=== PATIENT | male | born 1955 | race Caucasian/White ===

== ENCOUNTER 2017-05-05 12:42 | Emergency (ER) | payer BC ==
[2017-05-05] MEDS: NICARDipine HCL 30 MG CAPSULE PO (18:18)
[2017-05-05] MEDS: FLUORESCEIN STRIP LEFT EYE (18:18)
[2017-05-05] MEDS: PROPARACAINE 0.5% 15 ML OPH LEFT EYE (18:30)
[2017-05-05] MEDS: TETRACAINE 0.5% 4 ML OPH LEFT EYE (19:24)
== END 2017-05-05 19:42 | disposition home or self-care (01) ==
LOC: E/R 12:42
DX: I10 Essential (primary) hypertension (principal); S05.02XA Injury of conjunctiva and corneal abrasion without foreign body, left eye, initial encounter; X58.XXXA Exposure to other specified factors, initial encounter; Y92.9 Unspecified place or not applicable
CPT/HCPCS: 99284

== ENCOUNTER 2017-06-08 17:15 | Emergency (ER) | payer BC ==
[2017-06-09 00:07] LABS: ADD MAN DIFF? NO
[2017-06-09 00:08] LABS: BASOPHIL # 0.1 10^3/ul (0.0-0.1); BASOPHILS % 0.9 % (0.0-2.0); EOSINOPHILS # 0.2 10^3/ul (0.0-0.5); EOSINOPHILS % 1.1 % (0.0-7.0); HEMATOCRIT 40.4 % (42.0-52.0); HEMOGLOBIN 14.2 g/dl (14.0-18.0); LYMPHOCYTES # 4.3 10^3/ul (0.8-2.9); LYMPHOCYTES % 30.8 % (15.0-51.0); MEAN CORPUSCULAR HEMOGLOBIN 31.2 pg (29.0-33.0); MEAN CORPUSCULAR HGB CONC 35.1 g/dl (32.0-37.0); MEAN CORPUSCULAR VOLUME 88.8 fl (82.0-101.0); MEAN PLATELET VOLUME 10.5 fl (7.4-10.4); MONOCYTE # 0.9 10^3/ul (0.3-0.9); MONOCYTES % 6.6 % (0.0-11.0); NEUTROPHIL # 8.4 10^3/ul (1.6-7.5); NEUTROPHILS % 60.3 % (39.0-77.0); PLATELET COUNT 252 10^3/UL (140-415); RED BLOOD COUNT 4.55 10^6/ul (4.70-6.10); RED CELL DISTRIBUTION WIDTH 12.9 % (11.5-14.5)
[2017-06-09 00:27] LABS: ALANINE AMINOTRANSFERASE 39 IU/L (13-69); ALBUMIN 4.7 g/dl (3.3-4.9); ALBUMIN/GLOBULIN RATIO 1.04; ALKALINE PHOSPHATASE 110 IU/L (42-121); ANION GAP 18 (8-16); ASPARTATE AMINO TRANSFERASE 51 IU/L (15-46); BILIRUBIN,INDIRECT 1.8 mg/dl (0-1.1); BILIRUBIN,TOTAL 1.8 mg/dl (0.2-1.3); BLOOD UREA NITROGEN 15 mg/dl (7-20); CALCIUM 9.7 mg/dl (8.4-10.2); CARBON DIOXIDE 26 mmol/L (21-31); CHLORIDE 102 mmol/L (97-110); CREATININE 0.78 mg/dl (0.61-1.24); GLUCOSE 98 mg/dl (70-220); POTASSIUM 3.8 mmol/L (3.5-5.1); SODIUM 142 mmol/L (135-144); TOTAL PROTEIN 9.2 g/dl (6.1-8.1)
[2017-06-09 00:39] LABS: B-TYPE NATRIURETIC PEPTIDE 257 PG/ML (0-125)
[2017-06-09 00:42] LABS: TROPONIN-I < 0.012 ng/ml (0.00-0.12)
== END 2017-06-09 02:38 | disposition home or self-care (01) ==
LOC: E/R 17:15
DX: I10 Essential (primary) hypertension (principal)
CPT/HCPCS: 36415; 71045; 80053; 83880; 84484; 85025; 93005; 99285-25

== ENCOUNTER 2018-08-08 20:17 | Inpatient (IN) | payer BC ==
[2018-08-08 21:30] LABS: ADD MAN DIFF? NO
[2018-08-08 21:34] LABS: ABNORMAL IP MESSAGE 1; BASOPHIL # 0.1 10^3/ul (0.0-0.1); BASOPHILS % 0.5 % (0.0-2.0); EOSINOPHILS # 0.1 10^3/ul (0.0-0.5); EOSINOPHILS % 1.1 % (0.0-7.0); HEMATOCRIT 15.4 % (42.0-52.0); LYMPHOCYTES # 2.4 10^3/ul (0.8-2.9); LYMPHOCYTES % 20.1 % (15.0-51.0); MEAN CORPUSCULAR HEMOGLOBIN 29.3 pg (29.0-33.0); MEAN CORPUSCULAR HGB CONC 35.1 g/dl (32.0-37.0); MEAN CORPUSCULAR VOLUME 83.7 fl (82.0-101.0); MEAN PLATELET VOLUME 11.4 fl (7.4-10.4); MONOCYTE # 1.4 10^3/ul (0.3-0.9); MONOCYTES % 11.9 % (0.0-11.0); NEUTROPHILS % 65.7 % (39.0-77.0); PLATELET COUNT 111 10^3/UL (140-415); POSITIVE DIFF @See below; RED BLOOD COUNT 1.84 10^6/ul (4.70-6.10); RED CELL DISTRIBUTION WIDTH 19.5 % (11.5-14.5)
[2018-08-08 21:34] LABS: WHITE BLOOD COUNT 12.1 10^3/ul (4.8-10.8)
[2018-08-08 21:37] LABS: HEMOGLOBIN 5.4 g/dl (14.0-18.0)
[2018-08-08 21:39] LABS: URINE BLOOD (Dip) POC Negative (NEGATIVE); URINE GLUCOSE (Dip) POC Negative (NEGATIVE); URINE KETONES (Dip) POC Trace (NEGATIVE); URINE LEUKOCYTE EST (Dip) POC Negative (NEGATIVE); URINE NITRITE (Dip) POC Negative (NEGATIVE); URINE TOTAL PROTEIN POC 1+ (NEGATIVE)
[2018-08-08 21:39] LABS: URINE PH (Dip) POC 5.5 (5.0-8.5)
[2018-08-08 21:51] LABS: INR 2.46; PROTIME 26.7 Sec (11.9-14.9); PT RATIO 2.1
[2018-08-08 21:52] LABS: PARTIAL THROMBOPLASTIN TIME 49.9 Sec (23.0-35.0)
[2018-08-08 21:55] LABS: AMMONIA 38 umol/l (9-30)
[2018-08-08 21:57] LABS: ALANINE AMINOTRANSFERASE 31 IU/L (13-69); ALBUMIN 2.4 g/dl (3.3-4.9); ALBUMIN/GLOBULIN RATIO 0.63; ALKALINE PHOSPHATASE 125 IU/L (42-121); ANION GAP 12 (5-13); ASPARTATE AMINO TRANSFERASE 75 IU/L (15-46); BILIRUBIN,INDIRECT 1.7 mg/dl (0-1.1); BILIRUBIN,TOTAL 2.8 mg/dl (0.2-1.3); BLOOD UREA NITROGEN 46 mg/dl (7-20); CALCIUM 8.3 mg/dl (8.4-10.2); CARBON DIOXIDE 14 mmol/L (21-31); CHLORIDE 114 mmol/L (97-110); Estimated GFR 13 mL/min (>60); GLUCOSE 112 mg/dl (70-220); LIPASE 69 U/L (23-300); POTASSIUM 4.5 mmol/L (3.5-5.1); SODIUM 140 mmol/L (135-144); TOTAL PROTEIN 6.2 g/dl (6.1-8.1)
[2018-08-08 22:15] LABS: ETHANOL < 10.0 mg/dl (0-0)
[2018-08-08 23:12] LABS: AMPHETAMINE/METHAMPHETAMINE NEGATIVE (NEGATIVE); BARBITURATES NEGATIVE (NEGATIVE); BENZODIAZEPINES NEGATIVE (NEGATIVE); CANNABINOIDS NEGATIVE (NEGATIVE); COCAINE NEGATIVE (NEGATIVE); OPIATES POSITIVE (NEGATIVE)
[2018-08-09] MEDS ORDERED: ACETAMINOPHEN 325 MG TAB PO (04:00)
[2018-08-09] MEDS ORDERED: LORAZEPAM 0.5 MG TAB PO (04:00)
[2018-08-09] MEDS: FAMOTIDINE 20 MG TAB PO (08:35)
[2018-08-09] MEDS: POTASSIUM CHLORIDE (SR) 20 MEQ TAB PO (08:36)
[2018-08-09] MEDS: HYOSCYAMINE 0.125 MG SUBL TAB PO (08:36)
[2018-08-09] MEDS: LACTULOSE 30ML CUP PO ×4 (08:36→23:52)
[2018-08-09] MEDS: FUROSEMIDE 20 MG TAB PO (08:36)
[2018-08-09] MEDS: ALBUMIN HUMAN 25% 100 ML IV ×2 (11:00→20:17)
[2018-08-09] MEDS: LIDOCAINE 1% (MPF) 5 ML VIAL (12:43)
[2018-08-09 13:37] LABS: IMMEDIATE SPIN CROSSMATCH 1 4
[2018-08-09 14:07] LABS: FLD MN% 70.6 %; FLD PMN% 29.4 %; FLD RBC 1000 /uL; FLD WBC 85 /cmm
[2018-08-09 14:43] LABS: FLD CLARITY HAZY; FLD COLOR YELLOW
[2018-08-09 14:43] LABS: FLD TYPE PARACENTHESIS
[2018-08-09] MEDS: PHYTONADIONE 10 MG in DEXTROSE 5% 50 ML IVPB (16:12)
[2018-08-09] MEDS: CEFTRIAXONE 1 GM/50 ML (PMX) 50 ML IVPB (16:12)
[2018-08-09] MEDS: PANTOPRAZOLE 40 MG INJ IV (17:55)
[2018-08-09 19:17] LABS: ADD MAN DIFF? NO
[2018-08-09 19:20] LABS: WHITE BLOOD COUNT 13.3 10^3/ul (4.8-10.8)
[2018-08-09 19:20] LABS: BASOPHIL # 0.1 10^3/ul (0.0-0.1); BASOPHILS % 0.5 % (0.0-2.0); EOSINOPHILS # 0.2 10^3/ul (0.0-0.5); EOSINOPHILS % 1.8 % (0.0-7.0); HEMATOCRIT 29.2 % (42.0-52.0); HEMOGLOBIN 10.2 g/dl (14.0-18.0); LYMPHOCYTES # 3.3 10^3/ul (0.8-2.9); LYMPHOCYTES % 24.5 % (15.0-51.0); MEAN CORPUSCULAR HEMOGLOBIN 28.4 pg (29.0-33.0); MEAN CORPUSCULAR HGB CONC 34.9 g/dl (32.0-37.0); MEAN CORPUSCULAR VOLUME 81.3 fl (82.0-101.0); MEAN PLATELET VOLUME 11.4 fl (7.4-10.4); MONOCYTE # 1.5 10^3/ul (0.3-0.9); MONOCYTES % 10.9 % (0.0-11.0); NEUTROPHIL # 8.2 10^3/ul (1.6-7.5); NEUTROPHILS % 61.8 % (39.0-77.0); PLATELET COUNT 101 10^3/UL (140-415); POSITIVE DIFF @See below; RED BLOOD COUNT 3.59 10^6/ul (4.70-6.10); RED CELL DISTRIBUTION WIDTH 17.1 % (11.5-14.5)
[2018-08-09] MEDS: RIFAXIMIN 550 MG TAB PO (20:46)
[2018-08-09] MEDS: CITRIC ACID/NA CITRATE 30 ML CUP PO (20:46)
[2018-08-09] MEDS: ONDANSETRON 4 MG INJ IV (22:56)
[2018-08-10] MEDS: ALBUMIN HUMAN 25% 100 ML IV ×2 (03:29→10:42)
[2018-08-10 06:02] LABS: ADD MAN DIFF? NO
[2018-08-10] MEDS: LACTULOSE 30ML CUP PO ×2 (06:04→11:24)
[2018-08-10 06:09] LABS: ABNORMAL IP MESSAGE 1; BASOPHIL # 0.1 10^3/ul (0.0-0.1); BASOPHILS % 0.3 % (0.0-2.0); EOSINOPHILS % 0.2 % (0.0-7.0); HEMATOCRIT 29.5 % (42.0-52.0); HEMOGLOBIN 10.4 g/dl (14.0-18.0); LYMPHOCYTES # 1.7 10^3/ul (0.8-2.9); LYMPHOCYTES % 10.6 % (15.0-51.0); MEAN CORPUSCULAR HEMOGLOBIN 28.9 pg (29.0-33.0); MEAN CORPUSCULAR HGB CONC 35.3 g/dl (32.0-37.0); MEAN CORPUSCULAR VOLUME 81.9 fl (82.0-101.0); MEAN PLATELET VOLUME 11.2 fl (7.4-10.4); MONOCYTE # 1.3 10^3/ul (0.3-0.9); MONOCYTES % 8.1 % (0.0-11.0); NEUTROPHIL # 12.6 10^3/ul (1.6-7.5); NEUTROPHILS % 80.2 % (39.0-77.0); PLATELET COUNT 97 10^3/UL (140-415); POSITIVE DIFF @See below; RED CELL DISTRIBUTION WIDTH 17.3 % (11.5-14.5)
[2018-08-10 06:09] LABS: WHITE BLOOD COUNT 15.7 10^3/ul (4.8-10.8)
[2018-08-10] MEDS: FAMOTIDINE 20 MG INJ IV (06:10)
[2018-08-10 06:22] LABS: ALANINE AMINOTRANSFERASE 34 IU/L (13-69); ALBUMIN 3.2 g/dl (3.3-4.9); ALBUMIN/GLOBULIN RATIO 0.88; ALKALINE PHOSPHATASE 142 IU/L (42-121); ANION GAP 16 (5-13); ASPARTATE AMINO TRANSFERASE 90 IU/L (15-46); BILIRUBIN,INDIRECT 2.3 mg/dl (0-1.1); BILIRUBIN,TOTAL 5.2 mg/dl (0.2-1.3); BLOOD UREA NITROGEN 47 mg/dl (7-20); CALCIUM 8.9 mg/dl (8.4-10.2); CARBON DIOXIDE 15 mmol/L (21-31); CHLORIDE 112 mmol/L (97-110); CREATININE 4.95 mg/dl (0.61-1.24); Estimated GFR 12 mL/min (>60); GLUCOSE 123 mg/dl (70-220); MAGNESIUM 2.7 mg/dl (1.7-2.5); PHOSPHORUS 6.6 mg/dl (2.5-4.9); POTASSIUM 4.4 mmol/L (3.5-5.1); SODIUM 143 mmol/L (135-144); TOTAL PROTEIN 6.8 g/dl (6.1-8.1)
[2018-08-10] MEDS: ONDANSETRON 4 MG INJ IV (08:47)
[2018-08-10] MEDS: PHYTONADIONE (1 MG/ML PO SYG) PO (09:00)
[2018-08-10] MEDS: HYOSCYAMINE 0.125 MG SUBL TAB PO (09:00)
[2018-08-10] MEDS: RIFAXIMIN 550 MG TAB PO (09:00)
[2018-08-10] MEDS: CITRIC ACID/NA CITRATE 30 ML CUP PO (09:00)
[2018-08-10] MEDS ORDERED: ALBUMIN HUMAN 25% 100 ML IV (09:30)
[2018-08-10] MEDS: CEFTRIAXONE 1 GM/50 ML (PMX) 50 ML IVPB (15:19)
== END 2018-08-10 16:45 | DRG 432 ==
LOC: E/R 20:17 → PP2 08-09 00:19
PROVIDERS: Pediatrics
PROC: 0W9G30Z Drainage of Peritoneal Cavity with Drainage Device, Percutaneous Approach (ICD-10-PCS; principal; 2018-08-08)
PROC: 30233N1 Transfusion of Nonautologous Red Blood Cells into Peripheral Vein, Percutaneous Approach (ICD-10-PCS; 2018-08-08)
DX: K70.31 Alcoholic cirrhosis of liver with ascites (principal); K76.7 Hepatorenal syndrome; D68.4 Acquired coagulation factor deficiency; N17.9 Acute kidney failure, unspecified; R64 Cachexia; E87.2 Acidosis; R65.10 Systemic inflammatory response syndrome (SIRS) of non-infectious origin without acute organ dysfunction; D64.9 Anemia, unspecified; Z68.27 Body mass index [BMI] 27.0-27.9, adult; I95.9 Hypotension, unspecified; N18.9 Chronic kidney disease, unspecified; R11.2 Nausea with vomiting, unspecified
CPT/HCPCS: 36415; 36430; 71045; 80053; 80307; 81003; 82140; 83690; 83735; 84100; 85025; 85610; 85730; 86850; 86900; 86901; 86920; 87070; 87102; 87116; 89051; 99285-25